=== PATIENT | male | born 1940 | race Caucasian/White ===

== ENCOUNTER 2024-12-03 19:14 | Emergency (ER) | payer MEDICARE, BC, SELFPAY ==
[2024-12-03 19:15] VITALS: BP 127/77; PULSE 91; RESP 16; TEMP 37.1; O2SAT 98
[2024-12-03 19:46] LABS: Prothrombin Time (Protime)PT. 22.0 SECONDS (11.7-14.9)
[2024-12-03 19:47] VITALS: BMI 29.4
--- NOTE | 2024-12-03 20:13 | EX.ED.DYSGE1 ---
HPI History of Present Illness Chief Complaint: Eckert C/O Detail of Chief Complaint: Multiple issues and moving from [place] Informant: patient and family Onset/Context/Timing Onset: - (Detailed in the HPI narrative) Context: Sudden Onset Timing: Intermittent Quality: HPI narrative Location: Multiple Current Severity: Not applicable Maximum Severity: Not applicable Worsened by: 1 issue is the patient stepped out of full Relieved by: Not applicable Associated Symptoms Associated Symptoms: Blood from penis Narrative Narrative: Patient is an 84-year-old gentleman. He is relocating from [facility]. 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 He presents because of trauma to penis. He apparently stepped on his Eckert. He was noted to have blood. Son was concerned. He is on Coumadin for atrial fibs. He is on 1 mg daily except Monday. He did not take a dose today. He has no established doctor in the area. He has no established reel hooker in the area. He has no established urologist in the area. He is not a good informant. He denies fever, chills night sweats. Denies cardiac or respiratory symptoms. Prior similar symptoms: Yes Recent Illness/Hospitalization: [facility] Medical History Urinary incontinence Atrial fibrillation Frequent falls Hx of cataract Diabetes type 2 Home Medications ?Medication ?Instructions ?Recorded ?Last Taken ?Type nystatin 100,000 unit/gram topical 1 applic topical TID #60 grams 12/03/24 Unknown Rx powder Allergy/AdvReac Type Severity Reaction Status Date / Time No Known Allergies Allergy Verified 12/03/24 19:16 Family History no significant family his Surgical History Hx of heart bypass surgery Social History (Updated 12/03/24 @ 20:[address] Дмитрий Fuentes MD) household members: family Smoking Status: Former smoker ROS ROS ED Constitutional Constitutional ED: Denies chills, fever(s), subjective or sweats Eyes Eyes: Denies blurry vision or change in vision Cardiovascular Cardiovascular: Denies chest pain or palpitations Respiratory/Chest Respiratory/Chest: Denies cough, dyspnea or dyspnea on exertion Gastrointestinal Gastrointestinal: Denies diarrhea or vomiting Genitourinary Genitourinary ED: Reports other Details: Blood from penis due to Eckert trauma Hematologic/Lymphatic Hematologic/Lymphatic: Reports systems reviewed and no addt'l complaints, except as documented EXAM Physical Exam Const Vital Signs: 12/03/24 19:15 Temperature 98.7 F Temperature Source Oral Pulse Rate 91 Respiratory Rate 16 Blood Pressure 127/77 H Blood Pressure Mean 93 Pulse Ox 98 Oxygen Delivery Method Room Air Positive well nourished and well developed Constitutional Narrative: Patient appears in no distress. General Appearance ED: well developed; Negative for cyanotic, diaphoretic or pallor HEENT Reports moist mucous membranes HEENT Narrative: Head is atraumatic and normocephalic. Eyes PERRL and EOMs intact bilaterally General Eye ED: Negative for pale conjunctiva or scleral icterus Neck no lymphadenopathy, supple and no JVD Resp normal respiratory effort Cardio regular rate and regular rhythm GI normal to inspection, nondistended, normoactive bowel sounds, non-tender, non-distended and no masses; Negative for hepatosplenomegaly Narrative: Patient is circumcised. Patient has necrosis ventral side of the glans. There is no evidence infection at this time. Testes descended bilaterally. He has evidence of Noemi infection involving the penis, scrotum lower portion of the abdomen and both inguinal regions. Will treat this with nystatin powder. Extremity Extremity Narrative: Patient has evidence of peripheral arterial disease. Neuro oriented x3 and CN's II-XII intact bilaterally Sensorium / Orientation: alert Psych Psych Narrative: Affect is flat. Skin General Skin Exam: Negative for jaundice or pallor MDM MDM MDM Narrative Medical decision making narrative: Since patient is have a physician in the area and is scheduled for PT/INR this was ordered in the emergency department. Nursing staff changed his Eckert. They also treated his fungal infection with nystatin powder since it is moist. Will for patient to store team leader in the area, urologist and podiatry. He was referred to Dr. De Leon for PCP, Dr. Devan Graf for podiatry and Dr. Rodríguez for urology Lab Data Lab results narrative: Patient's INR subtherapeutic. He was instructed to increase to 1 mg daily. Labs: Laboratory Results - last 24 hr 12/03/24 19:30 PT 22.0 H INR 1.9 Discharge Plan Triage Chief Complaint: Eckert C/O ED Provider: Fuentes,Дмитрий Dx/Rx/DC Orders Clinical Impression: Penile trauma, Candidiasis, cutaneous, Subtherapeutic anticoagulation Instructions: ED Eckert Catheter, Care, ED Fungal Skin Infection (Tinea) Prescriptions: New nystatin 100,000 unit/gram powder 1 applic topical TID Qty: 60 0RF Referrals: Kevyn Villalta MD [Med Staff - World History Teacher] - 1 Week Rosendo Rodríguez MD [Med Staff - Active Staff] - 1-2 Weeks Devan Graf DPM [Med Staff - Active Staff] - 1 Week Activity Restrictions/Additional Instructions: Take 1 mg tablet of Coumadin daily. You will need your level checked in a week. Print Language: Japanese Disposition Disposition: Home, Self Care
[2024-12-03 20:36] VITALS: BP 132/49; PULSE 77; RESP 18; TEMP 36.6; O2SAT 97
== END 2024-12-03 20:38 | disposition home or self-care (01) ==
PROVIDERS: Emergency Provider Emergency Medicine; PCP Internal Medicine; Visit Provider Emergency Medicine
DX: T83.83XA Hemorrhage due to genitourinary prosthetic devices, implants and grafts, initial encounter (principal); E11.9 Type 2 diabetes mellitus without complications; B37.2 Candidiasis of skin and nail; Z87.891 Personal history of nicotine dependence; Z79.01 Long term (current) use of anticoagulants; W22.8XXA Striking against or struck by other objects, initial encounter
CPT/HCPCS: 51702; 85610; 99283